=== PATIENT | female | born 2000 | race Caucasian/White ===

== ENCOUNTER 2019-02-10 14:36 | Emergency (ER) | payer OTHER ==
[~2019-02-10] VITALS: Ht 167.6 cm; Wt 54.4 kg
--- NOTE | 2019-02-10 14:55 | NUR ---
PT AAOX4. AMBULATORY. C/O PELVIC PAIN R & LEFT SIDE 10/16 [place]. -[place]. PT STATED SHE VISITED HER PRIMARY X2 MONTHS AGO FOR R PELVIC PAIN, WHICH THEY DID AN US AND FOUND A MASS ON R OVARY. THE PAIN HAS NOW MOVED TO L SIDE. NO ACUTE DISTRESS NOTED. AWAITING MD FOR EVAL.
[2019-02-10] MEDS ORDERED: IBUPROFEN 600 MG TABLET PO ONE ×2 (15:14→15:30)
[2019-02-10] MEDS ORDERED: ONDANSETRON 4 MG TAB.RAPDIS ONE (15:15)
--- NOTE | 2019-02-10 15:16 | NUR ---
SUPERVISOR ENGRAVING AT BEDSIDE FOR LAB COLLECTION
[2019-02-10 15:29] LABS: BASOPHILS % (AUTO) 0.9 % (0.0-2.0); EOSINOPHILS % (AUTO) 2.1 % (0.0-6.0); HEMATOCRIT 41 % (33-45); HEMOGLOBIN 13.9 g/dL (11.5-14.8); LYMPHOCYTES # (AUTO) 1.8 /CMM (0.8-4.8); LYMPHOCYTES % (AUTO) 36.1 % (20.0-44.0); MEAN CORPUSCULAR HGB CONC 34 g/dl (31.0-36.0); MEAN CORPUSCULAR VOLUME 90 fL (82-100); MONOCYTES # (AUTO) 0.4 /CMM (0.1-1.30); MONOCYTES % (AUTO) 8.8 % (2.0-12.0); NEUTROPHILS # (AUTO) 2.5 /CMM (1.8-8.9); NEUTROPHILS % (AUTO) 52.1 % (43.0-81.0); PLATELET COUNT (AUTO) 266 /CMM (150-450); RED BLOOD CELL COUNT(AUTO) 4.55 MIL/uL (4.0-5.2); WHITE BLOOD COUNT (AUTO) 4.9 K/uL (4.3-11.0)
[2019-02-10] MEDS ORDERED: ONDANSETRON 4 MG TAB.RAPDIS SL ONE (15:30)
[2019-02-10 15:35] LABS: CALCIUM, SERUM 9.7 mg/dL (8.5-10.1); CREATININE 0.9 mg/dL (0.6-1.3); POTASSIUM 4.9 mmol/L (3.5-5.1)
--- NOTE | 2019-02-10 15:41 | NUR ---
URINE COLLECTED AND SENT TO LAB
[2019-02-10 15:46] LABS: BILIRUBIN,URINE Negative (NEGATIVE); BLOOD, URINE Negative Ery/uL (NEGATIVE); COLOR,URINE Yellow (YELLOW); KETONES,URINE Negative (NEGATIVE); LEUKOCYTE ESTERASE ,URINE Trace (NEGATIVE); NITRITE, URINE Positive (NEGATIVE); PH,URINE 6.5 (5.0-8.0); PROTEIN,URINE Negative (NEGATIVE); UGLUCOSE Negative (NEGATIVE); UROBILINOGEN,URINE 0.2 EU/dL (0.2)
[2019-02-10 15:50] LABS: APPEARANCE,URINE SLIGHTLY HAZY (CLEAR)
[2019-02-10 15:51] LABS: BACTERIA,URINE Many /HPF (None Seen); SQUAMOUS EPITHELIAL CELL,UR Moderate /HPF (None Seen)
[2019-02-10 15:52] LABS: RBC,URINE 0-2 /HPF (0-2)
--- NOTE | 2019-02-10 16:40 | NUR ---
Patient is resting comfortably in bed. Easily aroused.
--- NOTE | 2019-02-10 17:31 | NUR ---
Patient discharged to home in stable condition. Written and verbal after care instructions given. Patient verbalizes understanding of instruction.
[2019-02-10 17:32] VITALS: BP 121/81
== END 2019-02-10 17:33 | disposition home or self-care (01) ==
LOC: ER 14:40
DX: N83.202 Unspecified ovarian cyst, left side (principal); R11.0 Nausea; N39.0 Urinary tract infection, site not specified
CPT/HCPCS: 36415; 76705; 76856; 80048; 81001; 84703; 85025; 87070; 87077; 87086; 87110; 87186; 87491; 87591; 99284; Q0162; 81000-TC